=== PATIENT | male | born 1985 | race Native Hawaiian/Other Pacific Islander ===

== ENCOUNTER 2018-06-17 03:38 | Emergency (ER) | payer OTHER ==
[~2018-06-17] VITALS: Ht 175.3 cm; Wt 55.8 kg
[2018-06-17 04:34] LABS: PLATELET COUNT 326 K/uL (142-355)
[2018-06-17 04:49] LABS: POTASSIUM 3.9 mmol/L (3.6-5.2)
[2018-06-17 07:36] VITALS: BP 128/74
== END 2018-06-17 07:36 | disposition home or self-care (01) ==
LOC: ED 03:38
PROVIDERS: Family Medicine
DX: N23 Unspecified renal colic (principal); N20.0 Calculus of kidney
CPT/HCPCS: 80053; 80307; 81000; 85027; 96372; 99283; J1885

== ENCOUNTER 2018-12-05 07:57 | Emergency (ER) | payer OTHER ==
[~2018-12-05] VITALS: Ht 175.3 cm; Wt 65.8 kg
[2018-12-05 08:07] VITALS: BP 113/78; TEMP 97.7
== END 2018-12-05 09:31 | disposition home or self-care (01) ==
LOC: ED 07:57
DX: J06.9 Acute upper respiratory infection, unspecified (principal); R05 Cough
CPT/HCPCS: 87502; 99282

== ENCOUNTER 2021-07-02 11:02 | Emergency (ER) | payer OTHER ==
[~2021-07-02] VITALS: Ht 175.3 cm; Wt 65.8 kg
[2021-07-02 12:23] VITALS: BP 136/78; TEMP 98
== END 2021-07-02 12:23 | disposition home or self-care (01) ==
LOC: ED 11:02
DX: Z20.2 Contact with and (suspected) exposure to infections with a predominantly sexual mode of transmission (principal)
CPT/HCPCS: 81000; 96373; 99283; J0696